=== PATIENT | male | born 1945 | race Caucasian/White ===

== ENCOUNTER 2022-10-08 21:10 | Observation (INO) | payer MEDICARE, SELFPAY ==
[2022-10-08 23:39] VITALS: BP 177/83; PULSE 71; RESP 12; TEMP 37.8; O2SAT 98
[2022-10-09] VITALS (9 sets, daily range): BP systolic 159–176; BP diastolic 71–90; PULSE 67–86; RESP 16–18; TEMP 36.3–36.8; O2SAT 95–98
--- NOTE | 2022-10-09 | DI.MRI_ITS ---
Exam(s) MR CERVICAL SPINE WO EXAM: MR CERVICAL SPINE WO CLINICAL HISTORY: radiculopathy TECHNIQUE: Multiplanar multisequence MRI of the cervical spine was performed without intravenous con trast. COMPARISON: No exams were available for comparison FINDINGS: BONES: There is an old compression deformity of T4. Intervertebral disc spaces are normal. Alignment is normal. Bone marrow signal intensity is within normal limits. CERVICAL CORD: Craniovertebral junction is unremarkable. The cervical cord is normal size and signal intensity. SOFT TISSUES: Unremarkable. C2-3: No disc herniation or bulge is identified. No significant central spinal canal or neural forami nal stenosis. C3-4: No disc herniation or bulge is identified. No significant central spinal canal or neural forami nal stenosis C4-5: No disc herniation or bulge is identified. No significant central spinal canal or neural forami nal stenosis C5-6: There is a small central disc herniation. No significant central spinal canal or neural forami nal stenosis C6-7: Mild prominence of the osteophyte disc complex. There is a face mint of the anterior subarachn oid space. There is no significant central spinal canal or neural foraminal stenosis. C7-T1: No disc herniation or bulge is identified. No significant central spinal canal or neural conner inal stenosis IMPRESSION: There are degenerative changes seen in the cervical spine as described above. There is, however, no significant central spinal canal or neural foraminal stenosis present. DATA REPOSITORY:
--- NOTE | 2022-10-09 02:04 | W.PM.HP.N ---
Date of service: 10/09/22 Time of Service: 02:04 Assessment and Plan Assessment and plan (1) TIA (transient ischemic attack): Status: Acute Assessment and plan: MRI brain w/o, MRA brain/cervical vessles, echo w/ bubble study, ASA 81 mg daily, atorvastatin 80 mg daily; check glycohemoglobin A1c, lipid profile, neurology consultation in the a.m., telemetry overnight, if no CVA on MRI then continue w/ secondary risk reduction. Consult P.T. to evaluate his ambulatory function and ADL. (2) Insulin-requiring or dependent type II diabetes mellitus: Status: Acute Assessment and plan: basal/bolus insulin, monitor glucose AC/HS, check A1c (3) Diabetic peripheral neuropathy associated with type 2 diabetes mellitus: Status: Acute Assessment and plan: not currently on any gabapentin or Lyrica (4) Essential hypertension: Status: Acute Assessment and plan: resume his lisinopril and HCTZ; monitor BP (5) GERD (gastroesophageal reflux disease): Status: Chronic Assessment and plan: not currently on any PPI or H2B, his CP may have been 2nd to GERD but his primary complaint was the electrical bolt he felt when he awoke from his nap. His family concern was the dysarthric speech. (6) Hyperlipidemia: Status: Acute Assessment and plan: check lipid profile, use high dose atorvastatin (7) COPD (chronic obstructive pulmonary disease): Status: Chronic Assessment and plan: asymptomatic; can use nebulizer prn History of Present Illness History of Present Illness Chief Complaint: slurred speech, electric bolt feeling to left arm Narrative: 77 yr old male w/ poorly controlled DM, HTN, presented to [facility] in the afternoon on 10/08/22 after experiencing slurred speech and a feeling of an electric shock down his left arm and throughout his body from his head to his toes. His slurred speech was observed by his [id number] and his son brought him into the emergency room. This occurred about 30 minutes prior to his arrival to the E.D. which was at 12:54. Initial report was that he had CP however the patient corrected the ED personnel to say that he had an electric like shock. His workup included labs, EKG, and CT of his head. CT was unremarkable. EKG demonstrated normal sinus rhythm at 74 bpm w/ lateral T wave abnormalities c/w LV strain vs ischemia. CBC normal, BUN 33, creatinine 1.48, normal electrolytes and LFT's, troponin I normal (7 pg/mL (normal 2 to 19), glucose 283, CXR no acute findings. The ED physican, Dr. Nils Salguero requested transfer to [facility] as [facility] has not MRI scanner available for another week. PFSH All Active Problems (Updated 10/09/22 @ 05:49 by Steve Chavarria MD) TIA (transient ischemic attack) (Acute) Diverticulosis (Acute) Rotator cuff arthropathy (Acute) Osteoarthritis (Chronic) Hearing loss (Acute) Erectile dysfunction (Acute) Asthma (Chronic) COPD (chronic obstructive pulmonary disease) (Chronic) Proteinuria (Acute) Hyperlipidemia (Acute) Aortic valve sclerosis (Acute) GERD (gastroesophageal reflux disease) (Chronic) Diabetic peripheral neuropathy associated with type 2 diabetes mellitus (Acute) Atherosclerotic peripheral vascular disease (Acute) Depression (Chronic) Insulin-requiring or dependent type II diabetes mellitus (Acute) Essential hypertension (Acute) Medical History (Updated 10/09/22 @ 05:49 by Steve Chavarria MD) Blindness of left eye Optic neuritis Surgical History (Updated 10/09/22 @ 02:50 by Steve Chavarria MD) History of appendectomy History of colonoscopy with polypectomy S/P hernia repair S/P total knee arthroplasty Family History (Updated 10/09/22 @ 02:53 by Steve Chavarria MD) Father , heart attack Heart disease Mother , MVA No problems noted. Son Cancer Son Seizure Asthma Social History (Updated 10/09/22 @ 02:55 by Steve Chavarria MD) Smoking/Tobacco Use Status: Never Smoking risk assessment performed?: Yes Drug use: Never Housing: house Meds Allergies and Home Medications Allergies Allergy/AdvReac Type Severity Reaction Status Date / Time morphine Allergy Unknown Unverified 10/09/22 01:11 Home Medications Medication Instructions Recorded Confirmed Type albuterol sulfate 90 mcg/actuation 2 puff inhalation Q4H PRN PRN 10/09/22 10/09/22 History aerosol inhaler (ProAir HFA) Shortness Of Breath Or Wheezing atorvastatin 10 mg tablet 10 mg PO DAILY 10/09/22 10/09/22 History hydrochlorothiazide 25 mg tablet 25 mg PO DAILY 10/09/22 10/09/22 History insulin detemir U-100 100 unit/mL 50 unit subcut DAILY 10/09/22 10/09/22 History (3 mL) subcutaneous pen insulin lispro 100 unit/mL 10 unit subcut TID 10/09/22 10/09/22 History subcutaneous pen (Humalog KwikPen (U-100) Insulin) lisinopril 20 mg tablet 20 mg PO BID 10/09/22 10/09/22 History metformin 500 mg tablet 500 mg PO BID 10/09/22 10/09/22 History omeprazole 20 mg tablet,delayed 20 mg PO DAILY 10/09/22 10/09/22 History release Exam Narrative Exam Narrative: Alert and oriented x4 HEENT: Atraumatic normocephalic, pupils equally round reactive to light and accommodation, extraocular motion intact, normal facial mimetic muscle movement; speech is clear, palate and tongue move well Neck: Supple, nontender, without thyromegaly or lymphadenopathy or JVD. Normal carotid pulses Lungs: Clear to auscultation and percussion Heart: Regular rate and rhythm without murmur rub or gallop. Normal apical impulse Abdomen: Nondistended, normal bowel sounds, nontender to palpation or percussion, no organomegaly, no bruits, no palpable masses, scar over midline from old laparotomy Genitalia and rectal exam: Deferred Extremities: Normal range of motion with normal strength. No peripheral cyanosis or edema. Normal pulses in upper extemities,femoral and popliteal but unable to palpate DP or PT bilaterally, feet are cool but not mottled, nails are dystrophic, no open sores Neurologic: Cranial nerves II (impaire vision in left eye, not completely blind but sees shadows), III-XII normal; Normal strength and sensation over the face trunk and extremities. DTRs within normal limits except had absent in both patella, (left is s/p TKA). No tremors or asterixis. Fine sensory is diminished in his feet c/w DM neuropathy; Unable to elicit Babinski d/t withdrawal Results Labs 10/09/22 05:35 10/09/22 05:35 Last Vital Signs Temp 37.8 C H 10/08/22 23:39 Pulse 73 10/09/22 00:32 Resp 12 10/08/22 23:39 BP 177/83 H 10/08/22 23:39 Pulse Ox 98 10/08/22 23:39 Time Spent Time spent with Patient: 55-74 minutes Time was spent: preparing to see the patient(eg.review tests), obtaining and/or reviewing separately otained hiistory, ordering medications,tests, procedures, referring, communicating with other health home health care respiratory therapist ([facility] Richard), indepentently interpreting results, counseling the patient and care coordination
[2022-10-09 06:34] LABS: Abs Immature Grans 0.03 10^3/uL (0.0-0.06); Absolute Basophil Count 0.03 10^3/uL (0.0-0.2); Absolute Eosinophil Count 0.55 10^3/uL (0.0-0.7); Absolute Lymphocyte Count 1.95 10^3/uL (1.2-3.4); Absolute Monocyte Count 0.61 10^3/uL (0.1-0.8); Absolute Neutrophil Count 4.34 10^3/uL (1.2-6.7); Basophils % 0.4; Eosinophils % 7.3; HCT 38.6 % (40.0-50.0); HGB 13.4 g/dL (13.5-17.5); Immature Grans % 0.4; MCH 28.3 pg (27.0-33.0); MCHC 34.7 % (32.0-36.0); MCV 81 fL (80-95); MPV 10.9 fL (8.0-11.0); Monocytes % 8.1; Neutrophils % 57.8; Platelet Count 175 10^3/uL (130-400); RBC 4.74 10^6/uL (4.36-5.78); RDW 12.7 % (11.8-14.1); RDW-SD 37.7 fL; WBC 7.51 10^3/uL (4.4-10.8)
[2022-10-09 06:40] LABS: ALT 16 U/L (16-63); AST 10 U/L (15-37); Albumin 3.2 g/dL (3.4-5.0); Alkaline Phosphatase 109 U/L (46-116); Anion Gap 7.9 mmol/L (3-11); BUN 33 mg/dL (7-18); Bilirubin, Total 0.4 mg/dL (0.2-1.0); CO2 27.1 mmol/L (21.0-32.0); CREATININE 1.4 mg/dL (0.70-1.30); Calcium 9.4 mg/dL (8.5-10.1); Chloride 104 mmol/L (98-107); Estimated GFR 51.45 (mL/min/1.73m2); Glucose 310 mg/dL (74-106); Potassium 4.4 mmol/L (3.5-5.1); Sodium 139 mmol/L (136-145); Total Protein 6.9 g/dL (6.4-8.2)
[2022-10-09 07:19] LABS: Hemoglobin A1C 12.9 % (<5.7)
[2022-10-09 07:34] LABS: Calculated LDL 35 mg/dL (<100); Cholesterol 128 mg/dL (<200); HDL Cholesterol 31 mg/dL (40-60); Triglyceride 312 mg/dL (<150)
--- NOTE | 2022-10-09 08:00 | DI.US_ITS ---
APPROVED REPORT EXAM: Comprehensive 2D, Doppler, and color-flow Echocardiogram Patient Location: In-Patient Senior Java Developer: Zak Lyles RDMS, RVT Indications: TIA VS CVA, BUBBLE STUDY Echo Enhancing Agent Indication: Rule out Shunt Agent(s) / Amount(s) Used: Agitated Saline 40.0 cc Comments: Contrast study was performed with 4 IV injections of 10ccs of agitated normal saline, at re st, with cough and post valsalva maneuver. Negative contrast study for shunt flow. Other Information Study Quality: Fair Conclusion Normal left ventricular wall thickness and chamber size. Ejection fraction is 50 to 55%. No segment al wall motion abnormalities are identified Normal right ventricular size and systolic function Both atria are normal in size Aortic valve is trileaflet and sclerotic without stenosis or regurgitation Mild mitral annular calcification Trace tricuspid regurgitation. Right ventricular systolic pressure could not be estimated Wall motion Left Ventricle The left ventricle is normal size. Left ventricular systolic function is There is normal left ventric ular wall thickness. There is global hypokinesis of the left ventricle. There is no ventricular septa l defect visualized. LVEF is50-55 Right Ventricle Right ventricle is grossly normal in size. Right ventricular systolic function is grossly normal. Jasmina ble to assess PA pressure. Atria The left atrium size is normal. The right atrium size is normal. The interatrial septum is intact wit h no evidence for an atrial septal defect. Saline bubble contrast intravenous injection does not demo nstrate PFO. Aortic Valve The Aortic valve is sclerotic. Number of aortic valve leaflets could not be assessed. There is no aor tic valvular stenosis. No aortic regurgitation is present. Mitral Valve Mild mitral annular calcification. No evidence of mitral valve stenosis. There is no mitral valve reg urgitation noted. Tricuspid Valve The tricuspid valve is normal in structure. There is no tricuspid valve stenosis. Trace tricuspid reg urgitation. Pulmonic Valve The pulmonary valve is normal in structure. There is no pulmonic valvular stenosis. There is no pulmo medina valvular regurgitation. Great Vessels The aortic root is normal in size. Ascending aorta is not well visualized. IVC is normal in size and collapses >50% with inspiration. Pericardium There is no pericardial effusion. 2D Dimensions IVSD d PLAX 0.69 cm M: 0.6-1.2 LV Vol A2C d MOD 75.7 mL LVPW d PLAX 0.69 cm M: 0.6 - 1.2 LV Vol A4C d MOD 84.5 mL LVID d PLAX 3.85 cm M: 4.2 - 5.8 LA vol/ BSA A4C s A-L 18.8 mL/m2 LVDs 3.20 cm M: 2.5 - 4.0 LA Area A4C s MOD 14.77 cm2 Ao Root d 2.76 cm M: 3.1 - 3.7 LV EF A4C MOD 38.0 % LV EF Teichholz 34.1 % LV EF A2C MOD 38.2 % LVEF (Abebe's) 37.34 % M: 52 - 72 LV EF Biplane MOD 37.3 % LV Volume 61.13 mL M: 62 - 150 SV 30.05 mL LV Volume Index 31.67 mL/m2 M: 34 - 74 SV Index 15.60 mL/m2 LV Vol Biplane MOD 80.5 mL FS 15.90 % M-Mode TAPSE 1.43 cm (M/F) >1.7 LV Diastology MV E' medial 0.068 (>0.07 m/s) E/A Ratio 0.6 LV E/e MED 10.40 (<14) MV E Vmax 0.70 (0.4-1.3 m/s) MV E' lateral 0.053 (>0.1 m/s) MV A Vmax 1.15 (0.4-1.3 m/s) LV E/e LAT 13.25 (<14) MV E/A Ratio 0.59 MV E/E' medial 10.41 MV E/E' lateral 13.29 Aortic Valve LVOT Area 3.19 cm2 AoV Area Vmax 2.32 cm2 LVOT Vmax 0.68 m/s AoV Area/ BSA (Vmax) 1.20 cm2/m2 LVOT Mean Javad. 0.46 m/s DIMA Mean Ajvad. 2.20 cm2 LVOT Peak Grad 1.9 mmHg DIMA Mean Javad. Index 1.14 cm2/m2 LVOT Mean Grad 1.0 mmHg LVOT VTI 0.152 m LVOT Diam s 2.00 cm AoV Vmax 0.94 m/s Velocity Ratio 0.72 AoV Mean Javad. 0.66 m/s AoV Peak Grad 3.5 mmHg LVOT SV 48.39 mL AoV Mean Grad 1.9 mmHg AoV VTI 0.153 m AoV Area VTI 3.16 cm2 AoV Area/ BSA (VTI) 1.64 cm/m2 Mitral Valve MV DT 369 (160-240 msec) MV PHT 107 msec MV Area PHT 2.05 cm2 MV VTI 0.331 m MV Area VTI 1.46 (4.0-6.0 cm2) Pulmonary Valve PV Vmax 1.25 (0.5-1.5 m/s) RVOT Peak Gr. 2.11 mmHg PV Peak Grad 6.2 mmHg RVOT Mean Gr. 1.05 mmHg PV Mean Grad 2.6 mmHg RVOT VTI 0.110 m PV VTI 0.186 m RVOT Vmax 0.73 m/s Tricuspid Valve RA Pressure 3.00 mmHg
--- NOTE | 2022-10-09 08:18 | PT.INIE ---
PT Notes Visit Reasons: TRANSFER FROM [facility] Physical Therapy Inpatient Initial Evaluation Date: 10/09/22 Referring Doctor: Steve Chavarria MD PT Orders: PT CONSULT: Fall Safety Assessment Precautions: Fall. Standard. Hard of hearing. Patient Profile/Admitting Diagnosis: Mulugeta is a 77 yo male that presented to the ER at [facility] on 10/08/22 for stroke concerns. He was transferred to [facility] in order to obtain MRI. Was experiencing slurred speech and a feeling of an electric shock down his left arm and throughout his body from his head to his toes. PMHX: See EMR Social History/Home Situation: Patient lives in home with ramp to enter, has basement. Son and grandchild live with him. Reports independent at baseline, but does not drive. Using cane at times. Blind left eye and hard of hearing. Missing right finger digits 2, 4, and 5. Equipment Owned/DME: Cane Subjective: Cleared by nursing to see patient and patient is agreeable to PT. Patient is resting in bed at time of consult. Objective: General Observation: Pleasant and alert. Mental Status: A&O x3 Pain: Left shoulder and upper arm, no rating given ROM: Right Upper Extremity: Shoulder Flexion WFL. Shoulder abduction WFL. Elbow flexion WFL. Wrist flexion WFL. Opening and closing of hand WFL. Left Upper Extremity: Shoulder Flexion WFL. Shoulder abduction WFL. Elbow flexion WFL. Wrist flexion WFL. Opening and closing of hand WFL. Right Lower Extremity: Hip flexion WFL. Hip abduction WFL. Knee flexion WFL. Ankle dorsiflexion WFL. Ankle plantarflexion WFL. Left Lower Extremity: Hip flexion WFL. Hip abduction WFL. Knee flexion WFL. Ankle dorsiflexion WFL. Ankle plantarflexion WFL. Strength: Right Upper Extremity: Shoulder flexors 4+/5 with pain. Shoulder abductors 4+/5 with pain. Elbow flexors 5/5. Elbow extensors 5/5. Left Upper Extremity: Shoulder flexors 4+/5 with pain. Shoulder abductors 4+/5 with pain. Elbow flexors 5/5. Elbow extensors 5/5. Right Lower Extremity: Hip flexors 5/5. Knee flexors 5/5. Knee extensors 5/5. Ankle dorsiflexors 5/5. Ankle plantarflexors 5/5. Left Lower Extremity: Hip flexors 5/5. Knee flexors 5/5. Knee extensors 5/5. Ankle dorsiflexors 5/5. Ankle plantarflexors 5/5. Sensation: Intact as to pain and pressure on bilateral lower extremities. Bed Mobility/Transfers: Rolling: Independent Supine to sit: Independent Sit to supine: Independent Sit to stand: Independent Stand to sit: Independent Gait: Ambulated 200ft with single point cane on right with supervision, wider stance, slight lateral sway Stairs: Ambulated 6 step x2 and 4 step x3 with use of rails and supervision Balance: Static Sitting: Normal Dynamic Sitting: Good Static Standing: Fair Dynamic Standing: Poor Special Tests: Mobility Limitations Standardized Measure [facility] AM-PAC 6 clicks Basic Mobility Inpatient Short Form: Raw Score: 24 CMS Score: 0% Informed Consent/Education: Patient instructed in purpose of PT consult and plan of care. Assessment: Mulugeta is independent with bed mobility and toileting. He was able to ambulate with and without single point cane safely. Patient is not impulsive. Discomfort reported in left shoulder. He does have increased pain with resistance of shoulder abduction and flexion. Mild weakness and discomfort with left shoulder ER. Left shoulder AROM also mildly painful. Did not do full orthopedic workup on shoulder as referral was for fall safety assessment. Overall is safe and appears to be at baseline of function. Patient left sitting edge of bed with tray table for breakfast and nursing notified of patient status. Patient presents with clinical signs and symptoms consistent with current/admitting diagnoses that have resulted to mobility limitations, gait instability, generalized weakness, and impairment of motor control as demonstrated by the following impairment level findings: 1. Decreased strength to shoulder major muscle groups 2. Impaired dynamic standing balance Impairments are contributing to the following functional limitations: 1. Decreased ability to perform ADLs with left shoulder 2. Increased fall risk Patient is assessed as a low complexity based on the following: History: 77 year old male with impairment level findings, functional limitations, and past medical history as indicated above Examination: Demonstrable impairment in strength, balance, and mobility level with underlying impairments and functional limitations as documented above Presentation: Stable Decision Making: Low complexity Goals: Goals x1 week 1. Independent gait on level surface with use of least restrictive device for at least 300 feet without report of pain nor dyspnea 2. Good dynamic standing balance/tolerance 3. Independent with home exercise program for shoulder pain Plan of Care/Treatment Plan: 1x/day, 7 days/week x1 week. Plan of care has been reviewed with the MEDICAL DATA ANALYST providing the service under Physical Therapy direction. Initiate Physical Therapy intervention for strengthening, bed mobility, transfers, gait, stairs, balance training, and use of assistive device. Discharge Plan DISCHARGE RECOMMENDATIONS: Home with outpatient PT for left shoulder TREATMENT CODE/TIME: 7:50-8:17 (27 minutes), [id number] Thank you for the opportunity to participate in the care of this patient. Lara Martinez, PT, DPT, OCS [facility] [place], [place]
[2022-10-09] MEDS: hydroCHLOROthiazide 25 MG TAB PO (08:22)
[2022-10-09] MEDS: Enoxaparin 40 MG/0.4 ML SYR SC (08:22)
[2022-10-09] MEDS: Omeprazole 20 MG CAPCR PO (08:22)
[2022-10-09] MEDS: Lisinopril 20 MG TAB PO (08:22)
[2022-10-09] MEDS: Aspirin E.C. 81 MG TABEC PO (08:22)
[2022-10-09] MEDS: Insulin Aspart 300 UNITS/3 ML PEN SC ×5 (08:23→18:09)
[2022-10-09] MEDS: Insulin Aspart 300 UNITS/3 ML PEN 10 UNITS SC ×3 (08:23→18:09)
--- NOTE | 2022-10-09 08:58 | INITIAL_ITS ---
Date of service: 10/09/22 Time of Service: 09:00 Care Management Initial Assmt Initial Assessment REASON FOR HOSPITALIZATION:: TIA PREVIOUS FUNCTIONAL STATUS/SOCIAL/FAMILY SUPPORTS:: Mulugeta lives alone in his own home in [place], [place] He had 7 children but 2 of them are . Mulugeta also lost his to cancer about 2 years ago after 47 years of marriage. Mulugeta stated that his grandson and his and son have been staying with him for a few months but are moving out soon. Mulugeta is retired, having left the work force about 15 years ago after becoming blind in one eye. 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 He is independent at baseline and uses a cane for ambulatory assistance. CURRENT FUNCTIONAL STATUS:: Mulugeta was sitting up on the side of the bed when CM met with him. He was pleasant and agreeable to conversation, although he is rather hard of hearing. Mulugeta talked about his family and, in particular, about his . They were for 47 years and from his statements, seemed to have had a close, loving relationship. His surviving children still live in the area and would help if needed. ADVANCE DIRECTIVES:: none on file Has patient been provided with info about the portal/API?: No Did the patient sign up for the portal?: No CODE STATUS:: Full Code INSURANCE COVERAGE / FINANCIAL ISSUES:: Medicare CURRENT HOME/COMMUNITY SERVICES/EQUIPMENT:: uses a cane for ambulation PRIMARY CARE PHYSICIAN:: Dr. Pritesh Portillo In [place], [place] POTENTIAL DISCHARGE NEEDS:: Follow up with PCP and plan of care PATIENT/FAMILY EDUCATION NEEDS:: Review of discharge instructions, activity, limitations, follow up plan, discuss Ask Me Three. TRANSPORTATION:: via private vehicle with family PLAN:: Anticipate Mulugeta will be discharged home when medically cleared with no new services. He will follow up with his PCP and plan of care and transport with family. CM will continue to offer support to Mulugeta and assess for discharge needs. PFSH All Active Problems (Updated 10/09/22 @ 10:08 by Briseyda Sharpe MD) Discharge planning issues (Acute) DVT prophylaxis (Acute) Left arm pain (Acute) TIA (transient ischemic attack) (Acute) Diverticulosis (Acute) Rotator cuff arthropathy (Acute) Osteoarthritis (Chronic) Hearing loss (Acute) Erectile dysfunction (Acute) Asthma (Chronic) COPD (chronic obstructive pulmonary disease) (Chronic) Proteinuria (Acute) Hyperlipidemia (Acute) Aortic valve sclerosis (Acute) GERD (gastroesophageal reflux disease) (Chronic) Diabetic peripheral neuropathy associated with type 2 diabetes mellitus (Acute) Atherosclerotic peripheral vascular disease (Acute) Depression (Chronic) Insulin-requiring or dependent type II diabetes mellitus (Acute) Essential hypertension (Acute) Medical History (Updated 10/09/22 @ 10:08 by Briseyda Sharpe MD) Blindness of left eye Optic neuritis Surgical History (Updated 10/09/22 @ 02:50 by Steve Chavarria MD) History of appendectomy History of colonoscopy with polypectomy S/P hernia repair S/P total knee arthroplasty Family History (Updated 10/09/22 @ 02:53 by Steve Chavarria MD) Father , heart attack Heart disease Mother , MVA No problems noted. Son Cancer Son Seizure Asthma Social History (Updated 10/09/22 @ 02:55 by Steve Chavarria MD) Smoking/Tobacco Use Status: Never Smoking risk assessment performed?: Yes Drug use: Never Housing: house
--- NOTE | 2022-10-09 09:40 | W.PM.PROGNOT ---
Date of Service Date of service: 10/09/22 Time of Service: 09:40 Assessment and Plan Assessment and plan (1) TIA (transient ischemic attack): Status: Acute Assessment and plan: Await MRI/MRA brain/c-spine, echo, neurology consult. According to the son, the slurred speech episodes have happened multiple times at home, and so I question whether this is a TIA. Continue asa, lower the dose of statin. Permissive hypertension. (2) Left arm pain: Status: Acute Assessment and plan: Given the description of an electrical shock type pain yesterday and neck/L shoulder/LUE pain today, I am concerned about the possibility of a herniated disc and radiculopathy. Obtain MRI C-spine. Await neurology consult. Check B12 level. (3) Insulin-requiring or dependent type II diabetes mellitus: Status: Acute Assessment and plan: A1C 12.9. Continue basal bolus insulin. I will not adjust insulins today until I have a little bit more data. (4) Diabetic peripheral neuropathy associated with type 2 diabetes mellitus: Status: Acute Assessment and plan: Check B12 level PT consult Neurology consult (5) Essential hypertension: Status: Acute Assessment and plan: permissive hypertension (6) GERD (gastroesophageal reflux disease): Status: Chronic Assessment and plan: Continue omeprazole. (7) Hyperlipidemia: Status: Acute Assessment and plan: Decrease the dose of atorvastatin. (8) COPD (chronic obstructive pulmonary disease): Status: Chronic Assessment and plan: Not in an acute exacerbation. Continue prn nebs (9) DVT prophylaxis: Status: Acute Assessment and plan: SC enoxaparin (10) Discharge planning issues: Status: Acute Assessment and plan: DNR, per patient and son We are clarifying this with Chloe. C/s PT, palliative care, speech Subjective Subjective Interval history since last seen: Mr Fisher reports L shoulder and arm pain all the way down to wrist. This has been going on for over a week. He denies numbness/tingling. He reports his balance has been off. Denies CP/SOB. Per son, his speech gets more slurred as the day progresses. He usually wakes up ok. The patient describes feeling very tired. When he had the sensation of the electricity in his body yesterday, it was on both sides of his body. The patient reports frequent falls at home. The son at bedside states that the patient gets periodically confused at home and this has been getting progressively worse. 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 Per son, the patient is DNR and the patient confirms this. The patient has paperwork in [employer] confirming this. 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; preserved strength in BUEs Objective Last Vital Signs Temp 36.5 C 10/09/22 07:20 Pulse 67 10/09/22 07:20 Resp 16 10/09/22 07:20 BP 170/80 H 10/09/22 07:20 Pulse Ox 96 10/09/22 07:20 Laboratory Results - last 24 hr 10/09/22 10/09/22 10/09/22 05:45 05:45 05:45 WBC RBC Hgb Hct MCV MCH MCHC RDW Plt Count MPV Immature Gran % Neutrophils % Lymphocytes % Monocytes % Eosinophils % Basophils % Nucleated RBC % Absolute Neutrophils Absolute Lymphocytes Absolute Monocytes Absolute Eosinophils Absolute Basophils Sodium 139 Potassium 4.4 Chloride 104 Carbon Dioxide 27.1 Anion Gap 7.9 BUN 33 H Creatinine 1.4 H Est GFR (CKD-EPI 2020) 51.45 Glucose 310 H Hemoglobin A1c 12.9 H Calcium 9.4 Total Bilirubin 0.4 AST 10 L ALT 16 Alkaline Phosphatase 109 Total Protein 6.9 Albumin 3.2 L Triglycerides 312 H Total Cholesterol 128 LDL Cholesterol, Calc 35 HDL Cholesterol 31 L 10/09/22 05:45 WBC 7.51 RBC 4.74 Hgb 13.4 L Hct 38.6 L MCV 81 MCH 28.3 MCHC 34.7 RDW 12.7 Plt Count 175 MPV 10.9 Immature Gran % 0.4 Neutrophils % 57.8 Lymphocytes % 26.0 Monocytes % 8.1 Eosinophils % 7.3 Basophils % 0.4 Nucleated RBC % 0.0 Absolute Neutrophils 4.34 Absolute Lymphocytes 1.95 Absolute Monocytes 0.61 Absolute Eosinophils 0.55 Absolute Basophils 0.03 Sodium Potassium Chloride Carbon Dioxide Anion Gap BUN Creatinine Est GFR (CKD-EPI 2020) Glucose Hemoglobin A1c Calcium Total Bilirubin AST ALT Alkaline Phosphatase Total Protein Albumin Triglycerides Total Cholesterol LDL Cholesterol, Calc HDL Cholesterol Time Spent with Patient Time Spent with Patient: 35-49 minutes Time was spent: preparing to see the patient(eg.review tests), obtaining and/or reviewing separately otained hiistory, ordering medications,tests, procedures, referring, communicating with other health long term acute care registered nurse, indepentently interpreting results, counseling the patient and care coordination
--- NOTE | 2022-10-09 09:56 | NUR.NOTE ---
Nursing Note: At approximately 0950 on 10/09/22, this RN returned a call from Robinson (pt.'s son - on HIPAA). RN updated pt.'s son regarding pt.'s mentation, VS, pain level and pt.'s declination of pain medication for pain management, head to toe assessment, plan of care, including orders for echocardiogram and MRI, etc. Pt.'s son verbalized understanding and presented with a few questions that were answered.
--- NOTE | 2022-10-09 10:31 | NUR.NOTE ---
Addendum entered by Bita Palomares 10/09/22 12:49: Jorge Luis'louise telephone number: # Original Note: Nursing Note: At approximately 0940 on 10/09/22, this RN entered the pt.'s room to recheck pt.'s VS, and noted that the pt. had a visitor. Pt. stated that the visitor was his son and the visitor introduced himself as Jorge Luis. Pt. gave verbal consent for the RN to discuss the pt.'s health information with his son, despite his son not being on the HIPAA. Once verbal consent was given, this RN updated the pt.'s son regarding the pt.'s plan of care, including the orders for an echocardiogram and MRI. Pt.'s son verbalized understanding and presented with a few questions that were answered.
[2022-10-09 11:06] LABS: Troponin I 85 ng/L (<or=60)
--- NOTE | 2022-10-09 11:45 | DI.MRI_ITS ---
Exam(s) MR BRAIN WO EXAM: MR BRAIN WO CLINICAL HISTORY: TIA vs CVA TECHNIQUE: Multiplanar multisequence MRI of the brain was performed. COMPARISON: No exams were available for comparison FINDINGS: VENTRICLES AND EXTRA AXIAL SPACES: Normal in size and morphology for the patient's age. MIDLINE SHIFT: None. CEREBRAL PARENCHYMA: No focus of restricted diffusion to suggest acute infarct. No space-occupying le otrito identified. There is a lacune seen adjacent to the left lateral ventricle. There are areas of h yperintense signal seen in the white matter on the T2 and FLAIR images adjacent to the frontal horns and the atria of the lateral ventricles. HEMORRHAGE: None. BRAINSTEM/CEREBELLUM: Normal. CALVARIUM: Normal. VISUALIZED PARANASAL SINUSES/MASTOIDS:Clear. CADDO OF SANCHEZ: Normal flow void. PITUITARY GLAND: Unremarkable. OTHER FINDINGS: None. IMPRESSION: 1. No evidence of an acute infarct. 2. Hyperintense signal in the white matter as described above. While this may represent small vessel ischemic disease, other causes of hyperintense signal on T2/FLAIR images, including demyelinating pr ocesses such as MS, should be considered. Please correlate clinically. DATA REPOSITORY:
--- NOTE | 2022-10-09 12:00 | DI.MRI_ITS ---
Exam(s) MR ANGIO BRAIN WO CLINICAL HISTORY: TIA vs CVA. TECHNIQUE: Multiplanar multisequence MRA of the brain was performed. COMPARISON: MR MR BRAIN WO from 10/09/2022 FINDINGS: Carotid Arteries: There is approximately 80 narrowing of the supraclinoid right internal carotid kandis ry. There is 50 percent stenosis of the supraclinoid left internal carotid artery.. There is no occ lusion or aneurysm. Anterior Cerebral Arteries: Right: No aneurysm, occlusion or significant stenosis. Left: No aneurysm, occlusion or significant stenosis. Middle Cerebral Arteries: Right: No aneurysm or occlusion. There is 50 percent stenosis in the distal M1 segment of the right middle cerebral artery. Left: No aneurysm, occlusion or significant stenosis. Posterior Cerebral Arteries: Right: No aneurysm, occlusion or significant stenosis. Left: No aneurysm or occlusion. There is 50 percent narrowing of the distal P2 segment of the left [employer]. Vertebral Arteries: Right: No aneurysm, occlusion or significant stenosis. Left: No aneurysm, occlusion or significant stenosis. Basilar Artery: No aneurysm, occlusion or significant stenosis. IMPRESSION: 1. Approximately 80 percent stenosis of the supraclinoid right internal carotid artery and 50 percent stenosis of the supraclinoid left internal carotid artery. 2. 50 percent stenosis of the distal M1 of the right MCA and the distal P2 of the left [employer]. 3. No evidence of occlusion or aneurysm. DATA REPOSITORY:
--- NOTE | 2022-10-09 12:08 | DI.MRI_ITS ---
Exam(s) MR ANGIO NECK WO EXAM: MR ANGIO NECK WO CLINICAL HISTORY: TIA vs CVA. TECHNIQUE: Multiplanar multisequence MRA of the Neck was performed. COMPARISON: No exams were available for comparison FINDINGS: The examination is limited due to patient motion artifact. Common Carotid: Right: No dissection, occlusion or significant stenosis. Left: No dissection, occlusion or significant stenosis. External Carotid: Right: No evidence of occlusion or significant stenosis. Left: No evidence of occlusion or significant stenosis. Internal Carotid: Right: No dissection, occlusion or significant stenosis. Left: No dissection, occlusion or significant stenosis. Vertebral Artery: Right: No dissection, occlusion or significant stenosis. Left: No dissection, occlusion or significant stenosis. The visualized paraspinal soft tissues are unremarkable. IMPRESSION: No evidence of dissection, occlusion or significant stenosis. DATA REPOSITORY:
[2022-10-09] MEDS: Normal Saline Flush 10 ML SYR IVP (13:38)
--- NOTE | 2022-10-09 14:33 | CHAPLAIN ---
Mulugeta was sitting up at the edge of the bed eating custard when I stopped. He told me that about losing the first, fourth and fifth fingers on his right hand. He lives in [place], [place], [place], [place]. Mulugeta said his a couple of years ago and one of his sons helpful in caring for his mom, and another son had more difficulty providing personal care. Mulugeta said he has a son from a first marriage who lives in [place]. Mulugeta put a house together on his property in [place], and he said he gets a lot of sunlight first think in the morning, and it help keep the house warm. Mulugeta was transferred here from [facility] because he needed an MRI.
--- NOTE | 2022-10-09 17:11 | NUR.NOTE ---
Nursing Note: Spoke with Pt son, Robinson, who was inquiring of test results today. Advised still awaiting official results. Son reports he would like the doctor or someone to tell him not to use stairs because he falls alot. Also states he is concerned about depression because since 2 years ago when pts , son reports all he does is talk about wanting to be with her again. Son states he wants pt to go on antidepressant meds, but pt does not want to. Advised CHRIS Wilson RN of this conversation and concerns.
--- NOTE | 2022-10-09 17:29 | W.NEUROCONSU ---
Date of service: 10/09/22 Time of Service: 17:29 Assessment and Plan Assessment and plan (1) Left arm pain: Status: Acute (2) Mild cognitive impairment: Status: Acute (3) Cerebral atherosclerosis: Status: Acute Assessment and plan: Mr. Fisher's clinical symptoms are not consistent with TIA and MRI imaging confirms no evidence of stroke which I discussed with him. Unclear the etiology of his electrical shock sensation, but no further recurrence. He is known to have fatigue related dysarthria as he had here. The left arm pain appears to be coming from the shoulder and further evaluation may be needed outpatient if pain continued. He otherwise has diffuse intracranial cerebrovascular disease with vascular risk factors including poorly controlled diabetes. I agree with the addition of ASA 81mg daily along with statin and improved glucose control along with BP. Finally, he has some mild cognitive changes per history. He should f/up in neurology clinic as an outpatient to explore this further. History of Present Illness History of Present Illness Chief Complaint: dysarthria Narrative: Handedness: right. Mr. 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 Mr. Fisher presented to the [facility] yesterday after awaking from a nap with dysarthria and an electric shock pain that went throughout his entire body lasting ~30 seconds with no further recurrence. Upon further interview, it appears that he has an element of baseline dysarthria and that his dysarthria is frequently worse after awaking from sleep; and that this wasn't necessarily concerning from family perspective. He also notes L shoulder pain that radiates into his upper arm x 1week without associated numbness and tingling. Work-up: -MRI brain w/o (10/09/22): No acute findings. 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 Moderate chronic vascular diseases and mild generalized atrophy. I reviewed these images personally and this is my personal interpretation. -MRA head/neck (10/09/22): Stenosis R>>L supraclinoid ICA as well in the distal R M1 and and L P2. I reviewed these images personally and this is my personal interpretation. -MRI c-spine (10/09/22): Limited by motion artifact. No significant central stenosis. ?NF narrowing L>R at C4-5 and on the L at C5-6. But difficult to tell due to the motion artifact. I reviewed these images personally and this is my personal interpretation. -Labs: A1c 12.9, LDL 35, Cr 1.48, trop x1neg, glucose 283 Review of Systems All systems reviewed & are unremarkable except as noted in HPI and below PFSH All Active Problems (Updated 10/09/22 @ 20:41 by Casandra Heredia MD) Cerebral atherosclerosis (Acute) Mild cognitive impairment (Acute) Discharge planning issues (Acute) DVT prophylaxis (Acute) Left arm pain (Acute) TIA (transient ischemic attack) (Acute) Diverticulosis (Acute) Rotator cuff arthropathy (Acute) Osteoarthritis (Chronic) Hearing loss (Acute) Erectile dysfunction (Acute) Asthma (Chronic) COPD (chronic obstructive pulmonary disease) (Chronic) Proteinuria (Acute) Hyperlipidemia (Acute) Aortic valve sclerosis (Acute) GERD (gastroesophageal reflux disease) (Chronic) Diabetic peripheral neuropathy associated with type 2 diabetes mellitus (Acute) Atherosclerotic peripheral vascular disease (Acute) Depression (Chronic) Insulin-requiring or dependent type II diabetes mellitus (Acute) Essential hypertension (Acute) Medical History (Updated 10/09/22 @ 20:41 by Casadnra Heredia MD) Blindness of left eye Optic neuritis Surgical History (Updated 10/09/22 @ 02:50 by Steve Chavarria MD) History of appendectomy History of colonoscopy with polypectomy S/P hernia repair S/P total knee arthroplasty Family History (Updated 10/09/22 @ 02:53 by Steve Chavarria MD) Father , heart attack Heart disease Mother , MVA No problems noted. Son Cancer Son Seizure Asthma Social History (Updated 10/09/22 @ 02:55 by Steve Chavarria MD) Smoking/Tobacco Use Status: Never Smoking risk assessment performed?: Yes Drug use: Never Housing: house Visit Medication and Allergies Active Medications Generic Name Dose Route Start Last Admin Trade Name Freq PRN Reason Stop Dose Admin Acetaminophen 325 - 650 mg 10/08/22 21:09 Acetaminophen 325 Mg Tab PO Q4H PRN PRN Al Hydrox/Mg Hydrox/Simethicone 30 ml 10/08/22 21:09 Mylanta Suspension 30 Ml Cup PO Q2H PRN PRN Albuterol Sulfate 2 puff 10/09/22 02:01 Albuterol Hfa 8 Gm 60 Puff Inh IH Q4H PRN PRN Shortness Of Breath Or Wheezing Aspirin 81 mg 10/09/22 08:30 10/09/22 08:22 Aspirin E.C. 81 Mg Tabec PO 81 mg DAILY GERALD Administration Atorvastatin Calcium 10 mg 10/09/22 20:00 Atorvastatin 10 Mg Tab PO QPM GERALD Device 1 each 10/09/22 03:00 Inhaler, Assist Device MC DIRECTED [facility] Dextrose 0 gm 10/08/22 21:15 Glucose Oral Gel 15 Gm/37.5 Gm Tube PO DIRECTED PRN Dextrose/Water 0 gm 10/08/22 21:15 Dextrose 50%-Water 25 Gm/50 Ml Syr IVP DIRECTED PRN Dimethicone/Zinc Oxide 0 gm 10/08/22 21:09 Randee Protect Cream 142 Gm Tube TP PRN PRN Docusate Sodium 100 mg 10/08/22 21:09 Docusate Sodium 100 Mg Cap PO TID PRN PRN Enoxaparin Sodium 40 mg 10/09/22 08:00 10/09/22 08:22 Enoxaparin 40 Mg/0.4 Ml Syr SC 40 mg Q24H GERALD Administration Hydrochlorothiazide 25 mg 10/09/22 08:30 10/09/22 08:22 Hydrochlorothiazide 25 Mg Tab PO 25 mg DAILY [facility] Administration Sodium Chloride 500 mls @ 0 mls/hr 10/08/22 21:09 Saline 500ml Bag IV PRN PRN As Directed IV Miscellaneous Supplies 1 each 10/08/22 21:15 Iv Access IV DIRECTED [facility] Insulin Aspart 0 - 18 units 10/09/22 08:00 10/09/22 14:09 Insulin Aspart 300 Units/3 Ml Pen SC Not Given 0800,1200,1700 [facility] Protocol Insulin Aspart 0 units 10/09/22 08:00 10/09/22 14:07 Insulin Aspart 300 Units/3 Ml Pen SC 3 units 0800,1200,1700 [facility] Administration Insulin Aspart 10 units 10/09/22 07:30 10/09/22 14:07 Insulin Aspart 300 Units/3 Ml Pen SC 10 units AC [facility] Administration Insulin Detemir 50 units 10/09/22 08:30 10/09/22 08:22 Insulin Detemir 300 Units/3 Ml Pen SC 50 units DAILY GERALD Administration Lisinopril 20 mg 10/09/22 08:30 10/09/22 08:22 Lisinopril 20 Mg Tab PO 20 mg BID GERALD Administration Magnesium Hydroxide 30 ml 10/08/22 21:09 Milk Of Magnesia 30 Ml Cup PO DAILY PRN PRN Omeprazole 20 mg 10/09/22 07:30 10/09/22 08:22 Omeprazole 20 Mg Capcr PO 20 mg DAILY@0730 GERALD Administration Polyethylene Glycol 17 gm 10/08/22 21:09 Polyethylene Glycol 3350 17 Gm Packet PO DAILY PRN PRN Constipation Sodium Chloride 0 ml 10/08/22 21:09 10/09/22 13:38 Normal Saline Flush 10 Ml Syr IVP 40 ml PRN PRN Administration Allergies morphine Allergy (Unknown, Unverified 10/09/22 01:11) Exam Narrative Exam Narrative: Physical Exam: Gen: Patient of apparent stated age, NAD Head and face: no facial or cranial abnormalities Neck: Supple, no meningismus, no occipital tenderness CV: + S1, S2, RRR, no murmur Resp: CTA B/L Abd: soft, nontender, nondistended Ext: No edema. No clubbing or cyanosis. No bony deformity. Neuro Exam: Language: fluency, naming, repetition, and comprehension intact; Mental Status: AAOx3, current events intact, fund of knowledge intact; Speech: no dysarthria Cranial nerves: Funduscopy: disk margins clear bilaterally CN II: visual dos santos intact CN III, IV, : extraocular movements intact, no nystagmus, pupils symmetric and reactive to light CN V: face sensation intact to LT and PP CN VII: no facial asymmetry noted CN VIII: hearing intact bilaterally CN IX, X: palate rises symmetrically CN XI: trapezius/SCM 5/5 bilaterally CN XII: protrudes tongue symmetrically Sensory: intact to LT, PP, vibration, and joint position in all extremities, absent Romberg Motor: bulk and tone intact. Fine motor movements intact bilaterally. No pronator drift. Strength 5/5 throughout including the deltoids, biceps, triceps, wrist extensors, hip flexors, knee flexors, knee extensors, ankle flexors, and ankle extensors. Reflexes: 2+ at the biceps, triceps, brachioradialis, patella, and achilles tendons bilaterally; toes down going bilaterally; Coordination: FTN and HTS intact bilaterally Gait: not seen Results Last Vital Signs Temp 98.2 F 10/09/22 15:02 Pulse 86 10/09/22 15:02 Resp 17 10/09/22 15:02 BP 166/81 H 10/09/22 15:02 Pulse Ox 98 10/09/22 15:02 Labs 10/09/22 05:45 10/09/22 05:45 Labs: Laboratory Results - last 24 hr 10/09/22 10/09/22 10/09/22 05:25 05:25 05:45 WBC RBC Hgb Hct MCV MCH MCHC RDW Plt Count MPV Immature Gran % Neutrophils % Lymphocytes % Monocytes % Eosinophils % Basophils % Nucleated RBC % Absolute Neutrophils Absolute Lymphocytes Absolute Monocytes Absolute Eosinophils Absolute Basophils Sodium Potassium Chloride Carbon Dioxide Anion Gap BUN Creatinine Est GFR (CKD-EPI 2020) Glucose Hemoglobin A1c Calcium Total Bilirubin AST ALT Alkaline Phosphatase Troponin I Cancelled Total Protein Albumin Triglycerides 312 H Total Cholesterol 128 LDL Cholesterol, Calc 35 HDL Cholesterol 31 L Add-On Test Request TNP 10/09/22 10/09/22 10/09/22 05:45 05:45 05:45 WBC 7.51 RBC 4.74 Hgb 13.4 L Hct 38.6 L MCV 81 MCH 28.3 MCHC 34.7 RDW 12.7 Plt Count 175 MPV 10.9 Immature Gran % 0.4 Neutrophils % 57.8 Lymphocytes % 26.0 Monocytes % 8.1 Eosinophils % 7.3 Basophils % 0.4 Nucleated RBC % 0.0 Absolute Neutrophils 4.34 Absolute Lymphocytes 1.95 Absolute Monocytes 0.61 Absolute Eosinophils 0.55 Absolute Basophils 0.03 Sodium 139 Potassium 4.4 Chloride 104 Carbon Dioxide 27.1 Anion Gap 7.9 BUN 33 H Creatinine 1.4 H Est GFR (CKD-EPI 2020) 51.45 Glucose 310 H Hemoglobin A1c 12.9 H Calcium 9.4 Total Bilirubin 0.4 AST 10 L ALT 16 Alkaline Phosphatase 109 Troponin I Total Protein 6.9 Albumin 3.2 L Triglycerides Total Cholesterol LDL Cholesterol, Calc HDL Cholesterol Add-On Test Request 10/09/22 10:12 WBC RBC Hgb Hct MCV MCH MCHC RDW Plt Count MPV Immature Gran % Neutrophils % Lymphocytes % Monocytes % Eosinophils % Basophils % Nucleated RBC % Absolute Neutrophils Absolute Lymphocytes Absolute Monocytes Absolute Eosinophils Absolute Basophils Sodium Potassium Chloride Carbon Dioxide Anion Gap BUN Creatinine Est GFR (CKD-EPI 2020) Glucose Hemoglobin A1c Calcium Total Bilirubin AST ALT Alkaline Phosphatase Troponin I 85 H* Total Protein Albumin Triglycerides Total Cholesterol LDL Cholesterol, Calc HDL Cholesterol Add-On Test Request
[2022-10-09] MEDS: Atorvastatin 10 MG TAB PO (20:02)
[2022-10-10] VITALS: PULSE 78
[2022-10-10 03:08] VITALS: BP 162/78; PULSE 84; RESP 18; TEMP 36.6; O2SAT 98
[2022-10-10 07:00] VITALS: PULSE 77
[2022-10-10 07:47] VITALS: BP 136/96; PULSE 82; RESP 18; TEMP 36.5; O2SAT 95
--- NOTE | 2022-10-10 07:48 | OTIE_ITS ---
Occupational Therapy Notes Inpatient Occupational Therapy Evaluation Date: 10/10/22 Referring Doctor:Briseyda Sharpe MD OT Orders: Non Urgent Precautions: Fall, standard, DNR PATIENT PROFILE/ADMITTING DIAGNOSIS: Pt is a 77 year old male who transferred from [facility] for the following dx of cerebral atherosclerosis, mild cognitive impairments, (L) UE pain, TIA, diverticulosis, OA, hearing loss, asthma. Past Medical History: All Active Problems?(Updated 10/09/22 @ 05:49 by Steve Chavarria MD) TIA (transient ischemic attack) (Acute) Diverticulosis (Acute) Rotator cuff arthropathy (Acute) Osteoarthritis (Chronic) Hearing loss (Acute) Erectile dysfunction (Acute) Asthma (Chronic) COPD (chronic obstructive pulmonary disease) (Chronic) Proteinuria (Acute) Hyperlipidemia (Acute) Aortic valve sclerosis (Acute) GERD (gastroesophageal reflux disease) (Chronic) Diabetic peripheral neuropathy associated with type 2 diabetes mellitus (Acute) Atherosclerotic peripheral vascular disease (Acute) Depression (Chronic) Insulin-requiring or dependent type II diabetes mellitus (Acute) Essential hypertension (Acute) Medical History?(Updated 10/09/22 @ 05:49 by Steve Chaavrria MD) Blindness of left eye Optic neuritis Surgical History?(Updated 10/09/22 @ 02:50 by Steve Chavarria MD) History of appendectomy History of colonoscopy with polypectomy S/P hernia repair S/P total knee arthroplasty Social History/Home Situation: Pt states that he lives in a private home with family. He states that he is (I) at his baseline level of function with his ADL/IADL routines. He denies the need for meals on wheels and notes that he can cook. He has a tub shower which he states works well. Functionally he states that he does not drive but likes to remain as (I) as possible. Equipment owned/DME: Cane SUBJECTIVE: Pt was sitting in bed when OT arrived he is agreeable to OT consult. OBJECTIVE: General Observation: Pleasant, decreased hearing, pain in (L) shoulder Mental Status: A&Ox3 Pain: Shoulder pain ROM: RUE AROM WFL not limiting to ADLs, missing all digits except MF/thumb L UE AROM WFL not limiting to ADLs STRENGTH: RUE 4/5 throughout LUE 4/5 throughout FUNCTIONAL MOBILITY/ADLS: Transfers (I) BATHING Nt at todays session he reports that he is going to the shower today and would like to wait for that. DRESSING seated on side of the bed Dressing LE (I) don and doffing (B) socks which is a good indication and assumed that pt would be able to don pants (I) as well TOILETING on toilet (I) EATING seated (I) with no issues with chewing or swallowing. Appropriate use of silberware. BALANCE: Static sitting Normal Dynamic Sitting Normal Static Standing Good Dynamic Standing Good SPECIAL TESTS: Daily Activity Limitations Standardized Measure [facility] AM -PAC ?6 clicks? Daily Activity Inpatient Short Form: Raw score: 23 Standardized score: 51.12 CMS score: 15.86% INFORMED CONSENT/EDUCATION: Pt instructed in purpose of OT Consult and plan of care. ASSESSMENT: Patient is a 77-year-old male referred to occupational therapy s [facility] with diagnosis of cerebral atherosclerosis, mild cognitive impairments, (L) UE pain, TIA, diverticulosis, OA, hearing loss, asthma. Patient presents with clinical signs and symptoms consistent with dx, as demonstrated by the following impairment level findings/functional limitations: Pain in (L) shoulder but otherwise (I) with most of his ADLs. AMPAC score 23 Patient is assessed as a Low 01269 complexity based on the following: History: see above Examination: see functional limitations as noted above Presentation: evolving Decision Making: AMPAC score 23 GOALS Goals x1 week 1. Oral Hygiene (I) standing at sink 2. Dressing (I) 3. Bathing (I) PLAN OF CARE/TREATMENT PLAN: 1x/day, 5 days/ week x 1week Initiate Occupational Therapy Services for bathing, dressing, grooming, toileting, eating, transfer training. DISCHARGE RECOMMENDATIONS Home with outpatient PT for shoulder pain/ continued assessment of this. TREATMENT TIME/MINUTES/CODES [id number], 27 minutes (08:00) [facility] [place], [place]
[2022-10-10] MEDS: Aspirin E.C. 81 MG TABEC PO (07:53)
[2022-10-10] MEDS: Enoxaparin 40 MG/0.4 ML SYR SC (07:53)
[2022-10-10] MEDS: Omeprazole 20 MG CAPCR PO (07:56)
[2022-10-10] MEDS: Insulin Aspart 300 UNITS/3 ML PEN SC ×4 (07:57→13:01)
[2022-10-10 08:15] LABS: Anion Gap 10.7 mmol/L (3-11); BUN 37 mg/dL (7-18); CO2 26.3 mmol/L (21.0-32.0); CREATININE 1.6 mg/dL (0.70-1.30); Calcium 9.5 mg/dL (8.5-10.1); Chloride 104 mmol/L (98-107); Estimated GFR 43.83 (mL/min/1.73m2); Glucose 222 mg/dL (74-106); Magnesium 1.7 mg/dL (1.8-2.4); Potassium 4.3 mmol/L (3.5-5.1); Sodium 141 mmol/L (136-145)
[2022-10-10 08:23] LABS: Troponin I 76 ng/L (<or=60)
[2022-10-10] MEDS: Insulin Aspart 300 UNITS/3 ML PEN 10 UNITS SC ×2 (08:41→11:28)
--- NOTE | 2022-10-10 10:30 | RT.EKG_ITS ---
APPROVED REPORT Exam: Resting ECG Reason for Exam: minimal elevation of troponin Patient Location: I HR:86 bpm ECG Measurements Heart Rate 86 AXIS NM 172 P -17 QRSd 100 QRS -40 QT 359 T 128 QTc 430 Conclusion Sinus rhythm...normal P axis, V-rate 50- 99 Left anterior fascicular block...axis(240,-40), init forces inf Abnormal R-wave progression, early transition...QRS area>0 in V2 Abnormal T, consider ischemia, lateral leads...T <-0.20mV, I aVL V5 V6
[2022-10-10 11:00] VITALS: BP 172/86; PULSE 80; RESP 18; TEMP 36.5; O2SAT 97
[2022-10-10] MEDS: Magnesium Chloride 64 MG TABCR PO (11:05)
[2022-10-10] MEDS: Lidocaine 5% Patch 1 PATCH TP (11:05)
[2022-10-10] MEDS: Acetaminophen 325 MG TAB PO (11:05)
[2022-10-10] MEDS: Lisinopril 20 MG TAB PO (11:27)
[2022-10-10 11:28] LABS: Vitamin B12 239 pg/mL (193-986)
[2022-10-10] MEDS: hydroCHLOROthiazide 25 MG TAB PO (11:28)
--- NOTE | 2022-10-10 14:12 | CMDISCH_ITS ---
Date of service: 10/10/22 Time of Service: 14:12 LACE Index Scoring Tool Questions: Length of Stay (in days): 2 Was the patient admitted via the E.D.?: No Comorbidities: Cerebrovascular Disease, Diabetes w/o Complication and Chronic Pulmonary Disease E.D. Visits: 1 Answers: Total Score: 8 Risk of Readmission: Low Risk Care Management Discharge Plan Reason for Hospitalization: TIA Discharge Plan: Mulugeta will be discharged home with new home health services for nursing, PT and [employer]. He will follow up with his PCP and plan of care and transport with his son. Patient/Family Education Needs: Review of discharge instructions, activity, limitations, follow up plan, discuss Ask Me Three. Services Needed at Discharge: Home Health Care Services
--- NOTE | 2022-10-10 14:15 | PT.INTREAT ---
PT Notes Visit Reasons: TIA (cardiology) Inpatient Physical Therapy Treatment Note [facility] Date: 10/10/22 PRECAUTIONS: Fall. Standard. Hard of hearing SUBJECTIVE: [] OBJECTIVE: PAIN: Left shoulder and left knee bother BED MOBILITY/TRANSFERS Rolling L/R: Independent Supine-sit: Independent Sit-supine: Independent Sit-stand: Supervision Stand-sit: Supervision GAIT Assistive Device: Single point cane Weight bearing: Full Assist: SBA Distance: 300ft x2 Deviation: Occasional path deviation THEREX: Sit to stand x10 Bilateral shoulder rows x15 red band Bilateral shoulder extension x10 red band Bilateral shoulder ER x10 red band Bilateral shoulder horizontal abduction x10 red band STAIRS: 6 x2, 4 x3 with single rail and cane ASSESSMENT: [] PLAN: [] TREATMENT CODE/TIME: 13:46-14:14 (28 minutes) [id number]
--- NOTE | 2022-10-10 14:26 | PT.DS ---
Supervising Provider: Lara Martinez PT Diagnosis: Hospital admission Diagnosis: Hosital admission Weeks Elapsed: week(s) and 0 day(s) Patient Location: Med Surg Referring Provider: Date of Service: October 10, 2022 2:26 pm PT Notes Visit Reasons: TIA (cardiology) Inpatient Physical Therapy Treatment & Discharge Summary [facility] Date: 10/10/22 Dates of service: 10/09-10/10/22 Referring Doctor: Steve Chavarria MD PT Orders: PT CONSULT: Fall Safety Assessment Precautions: Fall. Standard. Hard of hearing. Patient Profile/Admitting Diagnosis:?Mulugeta is a 77 yo male that presented to the ER at [facility] on 10/08/22 for stroke concerns. He was transferred to [facility] in order to obtain MRI. Was experiencing slurred speech and a feeling of an electric shock down his left arm and throughout his body from his head to his toes. PMHX: See EMR Social History/Home Situation: Patient lives in home with ramp to enter, has basement. Son and grandchild live with him. Reports independent at baseline, but does not drive. Using cane at times. Blind left eye and hard of hearing. Missing right finger digits 2, 4, and 5. Equipment Owned/DME: Cane Subjective:?Cleared by nursing to see patient and patient is agreeable to PT. Patient is resting in bed at time of consult. Objective:? General Observation: Pleasant and alert. Mental Status: A&O x3 Pain: Left shoulder and upper arm, left knee pain, no rating given ROM: Right Upper Extremity: Shoulder Flexion WFL. Shoulder abduction WFL. Elbow flexion WFL. Wrist flexion WFL. Opening and closing of hand WFL. Left Upper Extremity: Shoulder Flexion WFL. Shoulder abduction WFL. Elbow flexion WFL. Wrist flexion WFL. Opening and closing of hand WFL. Right Lower Extremity: Hip flexion WFL. Hip abduction WFL. Knee flexion WFL. Ankle dorsiflexion WFL. Ankle plantarflexion WFL. Left Lower Extremity: Hip flexion WFL. Hip abduction WFL. Knee flexion WFL. Ankle dorsiflexion WFL. Ankle plantarflexion WFL. Strength: Right Upper Extremity: Shoulder flexors 4+/5 with pain. Shoulder abductors 4+/5 with pain. Elbow flexors 5/5. Elbow extensors 5/5. Left Upper Extremity: Shoulder flexors 4+/5 with pain. Shoulder abductors 4+/5 with pain. Elbow flexors 5/5. Elbow extensors 5/5. Right Lower Extremity: Hip flexors 5/5. Knee flexors 5/5. Knee extensors 5/5. Ankle dorsiflexors 5/5. Ankle plantarflexors 5/5. Left Lower Extremity: Hip flexors 5/5. Knee flexors 5/5. Knee extensors 5/5. Ankle dorsiflexors 5/5. Ankle plantarflexors 5/5. Sensation:?Intact as to pain and pressure on bilateral lower extremities. Bed Mobility/Transfers: Rolling: Independent Supine to sit: Independent Sit to supine: Independent Sit to stand: Independent Stand to sit: Independent Gait:?Ambulated 300ft x2 with single point cane on right with supervision, wider stance, slight lateral sway, occasional path deviation Stairs:?Ambulated 6 step x2 and 4 step x3 with use of single rail and cane, supervision Therapeutic Exercise ([id number]) for instruction in therapeutic exercises to develop strength and endurance, range of motion and flexibility: [] minutes Sit to stand x10 Bilateral shoulder rows x15 red band Bilateral shoulder extension x10 red band Bilateral shoulder ER x10 red band Bilateral shoulder horizontal abduction x10 red band Balance:? Static Sitting: Normal Dynamic Sitting: Good Static Standing: Fair Dynamic Standing: Poor Special Tests: Mobility Limitations Standardized Measure [facility] 6 clicks Basic Mobility Inpatient Short Form: Raw Score: 24 ? CMS Score: 0% Assessment: Mulugeta continues to have pain in left shoulder, but seems less provoked today. He ambulated 300 feet twice, with seated rest between. He reports the left knee bothers some and probably needs a new knee replacement as the current one was done 20 years ago. He is safe with bed mobility and transfers. Did shoulder exercises without overall aggravation. Patient presents with clinical signs and symptoms consistent with current/admitting diagnoses that have resulted to mobility limitations, gait instability, generalized weakness, and impairment of motor control as demonstrated by the following impairment level findings: 1. Decreased strength to shoulder major muscle groups 2. Impaired dynamic standing balance Impairments are contributing to the following functional limitations: 1. Decreased ability to perform ADLs with left shoulder 2. Increased fall risk Patient is assessed as a low complexity based on the following: History: 77 year old male with impairment level findings, functional limitations, and past medical history as indicated above Examination: Demonstrable impairment in strength, balance, and mobility level with underlying impairments and functional limitations as documented above Presentation: Stable Decision Making: Low complexity Goals: Goals x1 week 1. Independent gait on level surface with use of least restrictive device for at least 300 feet without report of pain nor dyspnea: Goal met 2. Good dynamic standing balance/tolerance: Not met 3. Independent with home exercise program for shoulder pain: Initiated Plan of Care/Treatment Plan: 1x/day, 7 days/week x1 week. Plan of care has been reviewed with the [facility] providing the service under Physical Therapy direction. Initiate Physical Therapy intervention for strengthening, bed mobility, transfers, gait, stairs, balance training, and use of assistive device. Discharge Plan DISCHARGE RECOMMENDATIONS: Home with Home Health PT TREATMENT CODE/TIME: 13:46-14:14 (28 minutes) [id number] Thank you for the opportunity to participate in the care of this patient. Lara Martinez, PT, DPT, OCS [facility] [place], [place]
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
[2022-10-10] MEDS: Cyanocobalamin 1000 MCG/ML VIAL IM/SC (14:52)
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
--- NOTE | 2022-10-11 08:54 | OTDS_ITS ---
Occupational Therapy Notes Occupational Therapy Inpatient Discharge Summary Date: 10/11/22 Dates of Service: 10/10/22 Referring Doctor:Briseyda Sharpe MD OT Orders: Non Urgent Precautions: Fall, standard, DNR *This document serves as a summary of care, no skilled OT services provided for this documentation on this date* PATIENT PROFILE/ADMITTING DIAGNOSIS: Pt is a 77 year old male who transferred from [facility] for the following dx of cerebral atherosclerosis, mild cognitive impairments, (L) UE pain, TIA, diverticulosis, OA, hearing loss, asthma. Past Medical History: All Active Problems?(Updated 10/09/22 @ 05:49 by Steve Chavarria MD) TIA (transient ischemic attack) (Acute) Diverticulosis (Acute) Rotator cuff arthropathy (Acute) Osteoarthritis (Chronic) Hearing loss (Acute) Erectile dysfunction (Acute) Asthma (Chronic) COPD (chronic obstructive pulmonary disease) (Chronic) Proteinuria (Acute) Hyperlipidemia (Acute) Aortic valve sclerosis (Acute) GERD (gastroesophageal reflux disease) (Chronic) Diabetic peripheral neuropathy associated with type 2 diabetes mellitus (Acute) Atherosclerotic peripheral vascular disease (Acute) Depression (Chronic) Insulin-requiring or dependent type II diabetes mellitus (Acute) Essential hypertension (Acute) Medical History?(Updated 10/09/22 @ 05:49 by Steve Chavarria MD) Blindness of left eye Optic neuritis Surgical History?(Updated 10/09/22 @ 02:50 by Steve Chavarria MD) History of appendectomy History of colonoscopy with polypectomy S/P hernia repair S/P total knee arthroplasty Social History/Home Situation: Pt states that he lives in a private home with family. He states that he is (I) at his baseline level of function with his ADL/IADL routines. He denies the need for meals on wheels and notes that he can cook. He has a tub shower which he states works well. Functionally he states that he does not drive but likes to remain as (I) as possible. Equipment owned/DME: Cane SUBJECTIVE:?NT OBJECTIVE:? FUNCTIONAL MOBILITY/ADLS: *Based on initial evaluation assessment- no skilled services provided on this date*? Transfers (I) BATHING Nt at todays session he reports that he is going to the shower today and would like to wait for that. DRESSING seated on side of the bed Dressing LE (I) don and doffing (B) socks which is a good indication and assumed that pt would be able to don pants (I) as well TOILETING on toilet (I) EATING seated (I) with no issues with chewing or swallowing. Appropriate use of silverware. BALANCE:? Static sitting Normal Dynamic Sitting Normal Static Standing Good Dynamic Standing Good ASSESSMENT:?? Patient is a? 77-year-old male referred to occupational therapy services with diagnosis of cerebral atherosclerosis, mild cognitive impairments, (L) UE pain, TIA, diverticulosis, OA, hearing loss, asthma. Patient was discharged home on 10/10 with services. GOALS- Unable to assess as pt was seen for OT consult only. 1. Oral Hygiene (I) standing at sink 2.? Dressing (I) 3.? Bathing (I) PLAN OF CARE/TREATMENT PLAN: Discharge from skilled OT services. DISCHARGE RECOMMENDATIONS Home with outpatient PT for shoulder pain/ continued assessment of this. TREATMENT TIME/MINUTES/CODES N//A [facility] [place], [place]
== END 2022-10-10 15:15 | disposition home health service (06) ==
PROVIDERS: Internal Medicine; Admitting Provider Internal Medicine; Visit Provider Internal Medicine
DX: I67.2 Cerebral atherosclerosis (principal); I10 Essential (primary) hypertension; K21.9 Gastro-esophageal reflux disease without esophagitis; M47.812 Spondylosis without myelopathy or radiculopathy, cervical region; E78.5 Hyperlipidemia, unspecified; E11.42 Type 2 diabetes mellitus with diabetic polyneuropathy; J44.9 Chronic obstructive pulmonary disease, unspecified; R47.81 Slurred speech; K57.90 Diverticulosis of intestine, part unspecified, without perforation or abscess without bleeding; M75.100 Unspecified rotator cuff tear or rupture of unspecified shoulder, not specified as traumatic; I35.8 Other nonrheumatic aortic valve disorders; F32.A Depression, unspecified; I70.209 Unspecified atherosclerosis of native arteries of extremities, unspecified extremity; R80.9 Proteinuria, unspecified; I65.23 Occlusion and stenosis of bilateral carotid arteries; I66.01 Occlusion and stenosis of right middle cerebral artery; I66.22 Occlusion and stenosis of left posterior cerebral artery; Z79.4 Long term (current) use of insulin; I44.4 Left anterior fascicular block; E53.8 Deficiency of other specified B group vitamins; R26.81 Unsteadiness on feet; R47.1 Dysarthria and anarthria; R74.8 Abnormal levels of other serum enzymes; E11.65 Type 2 diabetes mellitus with hyperglycemia; H54.62 Unqualified visual loss, left eye, normal vision right eye
CPT/HCPCS: 36415; 70544; 70547; 80048; 80053; 80061; 93306; 97110; 97165; 99223; J1650; 70551; 72141; 82607; 83036; 83735; 84484; 85025; 93005; 93010; 99239; G0378; J3420; J3490

== ENCOUNTER → 2022-10-09 07:12 | Outpatient (BNVA) | payer MEDICARE, SELFPAY | PROVIDERS: Visit Provider Psychiatry & Neurology Neurology ==

== ENCOUNTER → 2022-12-03 08:43 | Outpatient (BNVA) | payer MEDICARE, SELFPAY | PROVIDERS: Visit Provider Psychiatry & Neurology Neurology | DX: F03.90 Unspecified dementia, unspecified severity, without behavioral disturbance, psychotic disturbance, mood disturbance, and anxiety (principal); E53.8 Deficiency of other specified B group vitamins; R44.8 Other symptoms and signs involving general sensations and perceptions; H54.7 Unspecified visual loss; I67.2 Cerebral atherosclerosis; E11.42 Type 2 diabetes mellitus with diabetic polyneuropathy; I12.9 Hypertensive chronic kidney disease with stage 1 through stage 4 chronic kidney disease, or unspecified chronic kidney disease; E11.22 Type 2 diabetes mellitus with diabetic chronic kidney disease; N18.9 Chronic kidney disease, unspecified; J44.9 Chronic obstructive pulmonary disease, unspecified | CPT/HCPCS: 99214 ==

== ENCOUNTER → 2023-05-07 09:11 | Outpatient (BNVA) | payer MEDICARE, SELFPAY | PROVIDERS: PCP Family Medicine; Referring Provider Family Medicine; Visit Provider Psychiatry & Neurology Neurology | DX: E53.8 Deficiency of other specified B group vitamins (principal); F03.90 Unspecified dementia, unspecified severity, without behavioral disturbance, psychotic disturbance, mood disturbance, and anxiety; H91.93 Unspecified hearing loss, bilateral; H54.7 Unspecified visual loss; I67.2 Cerebral atherosclerosis | CPT/HCPCS: 99214 ==

== ENCOUNTER → 2023-11-05 08:54 | Outpatient (BNVA) | payer OTHER, MEDICAID, SELFPAY | PROVIDERS: PCP Family Medicine; Referring Provider Family Medicine; Visit Provider Psychiatry & Neurology Neurology | DX: F03.90 Unspecified dementia, unspecified severity, without behavioral disturbance, psychotic disturbance, mood disturbance, and anxiety (principal); H91.93 Unspecified hearing loss, bilateral; H54.7 Unspecified visual loss; I67.2 Cerebral atherosclerosis; E53.8 Deficiency of other specified B group vitamins | CPT/HCPCS: 99214 ==

== ENCOUNTER 2024-01-06 16:48 | Outpatient (REF) | payer OTHER, MEDICAID, SELFPAY ==
[2024-01-06 20:16] LABS: Bacteria Negative HPF (Negative); C & S Indicated? No; Casts 0-2 Hyaline LPF (Negative); Crystals Negative HPF (Negative); Epithelial Cells Rare HPF (Negative); Mucus Negative (Negative); RBC 0-2 HPF (0-2); WBC Negative HPF (0-5)
== END 2024-01-06 16:49 | disposition home or self-care (01) ==
LOC: NCHCN 16:48
PROVIDERS: PCP Nurse Practitioner Family; Visit Provider Nurse Practitioner Family
DX: R31.9 Hematuria, unspecified (principal)
CPT/HCPCS: 81015

== ENCOUNTER 2024-01-09 09:21 | Outpatient (REF) | payer OTHER, MEDICAID, SELFPAY ==
[2024-01-07 20:09] LABS: Magnesium 1.3 mg/dL (1.8-2.4)
== END 2024-01-09 09:22 | disposition home or self-care (01) ==
LOC: NCHCN 09:21
PROVIDERS: PCP Nurse Practitioner Family; Visit Provider Nurse Practitioner Family
DX: E83.42 Hypomagnesemia (principal)
CPT/HCPCS: 83735